=== PATIENT | male | born 1955 | race Hispanic/Latino ===

== ENCOUNTER 2020-07-29 22:06 | Emergency (ER) | payer SELFPAY ==
[2020-07-29] MEDS ORDERED: Lidocaine 1% PF 5 ML VIAL ONE (22:48)
== END 2020-07-30 00:03 | disposition home or self-care (01) ==
LOC: ERS 22:06
DX: S61.211A Laceration without foreign body of left index finger without damage to nail, initial encounter (principal); F17.210 Nicotine dependence, cigarettes, uncomplicated; W45.8XXA Other foreign body or object entering through skin, initial encounter
CPT/HCPCS: 12001